=== PATIENT | female | born 1955 | race Caucasian/White ===

== ENCOUNTER → 2021-05-07 | Outpatient (CLI) | payer BC ==
--- NOTE | 2021-05-07 12:22 | KCIC ---
MR LUMBAR SPINE WO [id number] Date: 05/07/2021 8:55 AM Indication: LOW BACK PAIN. Left lower back pain for many months. NKI. Comparison: None. Technique: Multi-planar multi-weighted magnetic resonance imaging of the lumbar spine was performed w ithout intravenous contrast using the standard lumbar spine protocol. FINDINGS: Trace anterolisthesis at L4-5 due to facet arthropathy. No acute fracture. Mild to moderate multileve l degenerative disc desiccation and disc height loss. Degenerative endplate edema at T12-L1. The conus terminates at a normal level. No abnormal signal is seen within the visualized distal spina l cord. No clumping of intrathecal nerve roots. No soft tissue abnormality in the visualized abdomen or pelvis. T12-L1: Disc bulge. No facet arthropathy. No significant spinal stenosis or neural foraminal narrowin g. L1-L2: Disc bulge. Mild facet arthropathy. No significant spinal stenosis or neural foraminal narrowi ng. L2-L3: Disc bulge. Moderate facet arthropathy. No significant spinal stenosis or neural foraminal manjula rowing. L3-L4: Disc bulge. Moderate facet arthropathy. No significant spinal stenosis or neural foraminal manjula rowing. L4-L5: Disc bulge. Severe facet arthropathy. Mild spinal stenosis and right lateral recess narrowing. Mild bilateral neural foraminal narrowing. L5-S1: Disc bulge. Moderate right and severe left facet arthropathy. No spinal stenosis. Mild bilater al neural foraminal narrowing. IMPRESSION: Lumbar spondylosis, worst at L4-5 with mild spinal canal stenosis and mild neural foraminal narrowing . Electronically signed by: Will Wright MD (05/07/2021 11:58 AM) [id number]
== END ==
LOC: KCIC MRI 08:31
PROVIDERS: ATTEND Chiropractor
DX: M47.816 Spondylosis without myelopathy or radiculopathy, lumbar region (principal); R60.0 Localized edema; M51.27 Other intervertebral disc displacement, lumbosacral region; M48.8X7 Other specified spondylopathies, lumbosacral region; M48.07 Spinal stenosis, lumbosacral region
CPT/HCPCS: 72148